=== PATIENT | female | born 1960 ===

== ENCOUNTER → 2022-10-18 08:57 | Outpatient (CLI) | payer OTHER, SELFPAY ==
--- NOTE | ~2022-10-18 | MR_ITS ---
MRI of the left shoulder Technique: Axial proton-density fat-sat images, coronal proton density fat-sat and T2 fat-sat images, and sagittal T1-weighted and T2 fat-sat images were acquired. Clinical History: Pain Findings: There is moderate degenerative change at the AC joint, with small subacromial spur. [place]acoc lavicular, coracoacromial, and coracohumeral ligaments appear intact. Supraspinatus and infraspinatus tendons are intact, without partial or full-thickness tear. Subscapul bret tendon is intact. Tendon of the long head of the biceps is intact. No definite labral tear identified. No significant degenerative change or effusion of the glenohumeral joint. No fluid distention of the subacromial/subdeltoid bursa. No muscle atrophy or edema. Inferior glenohumeral ligament is intact. Impression: Moderate AC joint degenerative change. No other significant findings. Reviewed, dictated and finalized at [facility]. [employer] Impression: Moderate AC joint degenerative change. No other significant findings.
== END ==
PROVIDERS: PCP Physician Assistant; Visit Provider Orthopaedic Surgery
DX: M25.512 Pain in left shoulder (principal); G89.29 Other chronic pain; M75.92 Shoulder lesion, unspecified, left shoulder
CPT/HCPCS: 73221